=== PATIENT | female | born 1985 | race American Indian/Alaskan Native ===

== ENCOUNTER 2021-12-12 11:28 | Inpatient (IN) | payer MEDICAID ==
[2021-12-12] MEDS ORDERED: LACTATED RINGERS 1,000 ML ONE (12:10)
[2021-12-12] MEDS ORDERED: CARBOPROST TROMETHAMINE 250 MCG/1 ML INJ IM PRN (12:40)
[2021-12-12] MEDS ORDERED: OXYTOCIN 10 UNIT/1 ML INJ IM PRN (12:40)
[2021-12-12] MEDS ORDERED: ACETAMINOPHEN 325 MG TAB PO PRN ×2 (12:40→17:00)
[2021-12-12] MEDS ORDERED: PENICILLIN G POTASSIUM 5 MIL.UNITS in SODIUM CHLORIDE 0.9% 50 ML IV ONE (12:40)
[2021-12-12] MEDS ORDERED: miSOPROStol 200 MCG TAB PR PRN (12:40)
[2021-12-12] MEDS ORDERED: ONDANSETRON 4 MG/2 ML INJ IV PRN ×2 (12:40→17:30)
[2021-12-12] MEDS ORDERED: fentaNYL 100 MCG/2 ML INJ IV PRN (12:40)
[2021-12-12] MEDS ORDERED: ePHEDrine SULFATE 50 MG/1 ML INJ IV PRN (12:40)
[2021-12-12] MEDS ORDERED: NalbUPHINE 10 MG/1 ML INJ IV PRN (12:40)
[2021-12-12] MEDS ORDERED: PROMETHAZINE 25 MG TAB PO PRN ×2 (12:40→17:30)
[2021-12-12] MEDS ORDERED: MINERAL OIL 30 ML ORAL LIQD PO PRN (12:40)
[2021-12-12] MEDS ORDERED: TERBUTALINE 1 MG/1 ML INJ SUB-Q PRN (12:40)
[2021-12-12] MEDS ORDERED: METHYLERGONOVINE MALEATE 0.2 MG/ML VIAL IM PRN (12:40)
[2021-12-12] MEDS ORDERED: LOPERAMIDE 2 MG CAP PO PRN (12:40)
[2021-12-12] MEDS ORDERED: LIDOCAINE (2%) 20 MG/1 ML VIAL 20 ML MDV INFILTRATI ONE (12:40)
[2021-12-12] MEDS ORDERED: LACTATED RINGERS 1,000 ML IV SCH (12:45)
--- NOTE | 2021-12-12 12:47 | History and Physical Report ---
History of Present Illness Date of examination: 12/12/21 Chief complaint: ctx and LOF History of present illness: at 37.1wks by LMP c/w U/S at [facility]. Pt left this practice and transferred to Dr. Kirkpatrick. Prenatals from [facility] obtained up to 24wks when pt was told that she had amniotic band and pt left to another practice. Pt admits to movement, feeling painful ctx, LOF at [facility] clinic today approx 10am, denies headache, fever or chills, denies vag bleed. Records from [facility] show Blood type ) positive, neg screen, rubella immune, VDRL neg, urine culture negative, HepBsAg neg and HIV negative. U/S at 16wks with amniotic band vs synechiaea and c-spine abnormality. No 1hrgtt done and repeat u/s at 20wks remain with amniotic bands. Pt states she went to [facility] but no records available. 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) - Obstetrical History Expected Date of Delivery: 01/01/22 Actual Gestation: 37 Week(s) 1 Day(s) : 4 Hx # Term Pregnancies: 2 Spontaneous Abortions: 1 Number of Living Children: 2 Medications and Allergies Allergies Allergy/AdvReac Type Severity Reaction Status Date / Time metronidazole [From Flagyl] Allergy Swelling Verified 02/25/13 09:02 Metronidazole HCl Allergy Swelling Verified 02/25/13 09:02 [From Flagyl] Home Medications Medication Instructions Recorded Confirmed Last Taken Type Albuterol Mdi (or & Nicu Only) 2 puff IH QID PRN 02/25/13 02/25/13 Unknown History [Proair] Active Meds: Active Medications Acetaminophen (Acetaminophen 325 Mg Tab) 650 mg PO Q4H PRN PRN Reason: Pain, Mild (1-3) Carboprost Tromethamine (Carboprost Tromethamine 250 Mcg/1 Ml Inj) 250 mcg IM ONCE PRN PRN Reason: Uterine Bleeding Ephedrine Sulfate (Ephedrine Sulfate 50 Mg/1 Ml Inj) 10 mg IV Q2M PRN PRN Reason: Hypotension Fentanyl (Fentanyl 100 Mcg/2 Ml Inj) 100 mcg IV Q2H PRN PRN Reason: Pain,Severe (7-10) LABOR PAIN Oxytocin/Sodium Chloride (Pitocin/Ns 30 Unit/500ml) 30 units in 500 mls @ 2 mls/hr IV TITR JI; Protocol Lactated Ringer's (Lactated Ringers) 1,000 mls @ 125 mls/hr IV DIRECT JI Oxytocin/Sodium Chloride (Pitocin/Ns 30 Unit/500ml) 30 units in 500 mls @ 40 mls/hr IV TITR JI; Protocol Penicillin G Potassium 5 mil. (units/ Sodium Chloride) 50 mls @ 100 mls/hr IV ONCE ONE; Protocol Stop: 12/12/21 13:09 Lidocaine (Lidocaine (2%) 20 Mg/1 Ml Vial 20 Ml Mdv) 20 ml INFILTRATI ONCE ONE Stop: 12/12/21 12:41 Loperamide HCl (Loperamide 2 Mg Cap) 2 mg PO ONCE PRN PRN Reason: give with Hemabate Methylergonovine Maleate (Methylergonovine Maleate 0.2 Mg/Ml Vial) 0.2 mg IM ONCE PRN PRN Reason: Uterine Bleeding Mineral Oil (Mineral Oil 30 Ml Oral Liqd) 30 ml PO QHS PRN PRN Reason: Constipation Misoprostol (Misoprostol 200 Mcg Tab) 800 mcg ID ONCE PRN PRN Reason: Uterine Bleeding Nalbuphine HCl (Nalbuphine 10 Mg/1 Ml Inj) 10 mg IV Q2H PRN PRN Reason: Pain, Moderate (4-6) Ondansetron HCl (Ondansetron 4 Mg/2 Ml Inj) 4 mg IV Q8H PRN PRN Reason: Nausea And Vomiting Oxytocin (Oxytocin 10 Unit/1 Ml Inj) 10 unit IM ONCE PRN PRN Reason: Uterine Bleeding Promethazine HCl (Promethazine 25 Mg Tab) 25 mg PO Q6H PRN PRN Reason: Nausea And Vomiting Terbutaline Sulfate (Terbutaline 1 Mg/1 Ml Inj) 0.25 mg SUB-Q ONCE PRN PRN Reason: Hyperstimulation/Hypertonicity Review of Systems All systems: negative (pt screaming to get the baby out of her and pushing from 5cm dilation) - Vital Signs Vital signs: Vital Signs Pulse Pulse Ox 72 100 12/12/21 11:44 12/12/21 11:44 Temp Pulse Resp BP Pulse Ox 78 100 12/12/21 12:42 12/12/21 12:42 - Physical Exam Breasts: Positive: deferred Cardiovascular: Regular rate Lungs: Positive: Normal air movement Abdomen: Positive: soft Genitourinary (Female): Positive: normal external genitalia Vulva: both: normal (no lesions seen) Vagina: Positive: normal moisture Uterus: Positive: enlarged (non-tender gravid) - Obstetrical FHR: category 1 Uterine Contraction Monitor Mode: External Cervical Dilatation: 10 (5cm in triage 1hr prior) Cervical Effacement Percentage: 100 station: +3 Uterine Contraction Pattern: Regular Uterine Contraction Intensity: Moderate Results Result Diagrams: 12/12/21 12:30 All other labs normal. Assessment and Plan Term laboring patient in active labor, SROM and ready to push baby 1. Admit to labor and delivery. See delivery note 2. records obtained after the delivery was done 3. All questions encouraged and answered
[2021-12-12] MEDS ORDERED: OXYTOCIN DRIP 30 UNITS/500 ML BAG IV SCH ×3 (13:00→17:00)
[2021-12-12 13:49] LABS: Hematocrit 27.5 % (30.3-42.9); Hemoglobin 8.6 gm/dl (10.1-14.3)
--- NOTE | 2021-12-12 14:15 | Procedure Note ---
OB Delivery Note - Delivery Date of Delivery: 12/12/21 Surgeon: EL SUAZO Estimated blood loss: 200cc - Vaginal Delivery presentation: vertex Delivery position: OA (with flexed right arm and fingers immediately below chin) Intrapartum events: precipitous labor- <3hr Delivery induction: none Delivery monitor: external FHT, external uterine Route of delivery: Delivery placenta: spontaneous Delivery cord: 3 umbilical vessels Episiotomy: none Delivery laceration: none Anesthesia: none Delivery comments: Precipitous vag delivery of viable female and pt screaming and running up the bed. Placenta delivered eventually and has accessory lobe, and same sent to pathology. Cervix visualized anteriorly without lacerations, pt could not to lerate exam therefore manual exam done and same appears complete. Bimanual exam done and clots removed from lower uterine segment. Pt given IV pain med just prior to delivery. Baby and patient doing well. PAUL nurse present for delivery. - A at 1 minute: 8 at 5 minutes: 9 (wt 2820g) Infant Gender: Female
[2021-12-12] MEDS ORDERED: IBUPROFEN 800 MG TAB PO PRN (16:00)
[2021-12-12 16:40] LABS: Hemoglobin 8.5 gm/dl (10.1-14.3); Mean Corpuscular HGB Conc 31 % (30-34); Mean Corpuscular Volume 85 fl (79-97); Platelet Count 212 K/mm3 (140-440); Red Blood Count 3.28 M/mm3 (3.65-5.03); Red Cell Distribution Width 16.2 % (13.2-15.2)
[2021-12-12] MEDS ORDERED: PENICILLIN G POTASSIUM 3 MIL.UNITS in SODIUM CHLORIDE 0.9% 50 ML IV SCH (17:00)
[2021-12-12] MEDS ORDERED: BENZOCAINE/MENTHOL 20/0.5% TOP SPRAY 56 GM TP PRN (17:00)
[2021-12-12] MEDS ORDERED: HYDROCORTISONE 25 MG RECTAL SUPP PR PRN (17:00)
[2021-12-12] MEDS ORDERED: LANOLIN/ZINC/DIMETHICONE (LANSINOH) 7 GM TP PRN (17:00)
[2021-12-12] MEDS ORDERED: WITCH HAZEL/ GLYCERIN PAD TP PRN (17:00)
[2021-12-12] MEDS ORDERED: diphenhydrAMINE 25 MG CAP PO PRN (17:00)
[2021-12-12] MEDS: IBUPROFEN 800 MG TAB PO SCH ×2 (17:17→23:36)
[2021-12-12] MEDS ORDERED: PROMETHAZINE 25 MG RECT SUPP PR PRN (17:30)
[2021-12-12 18:09] LABS: Band Neutrophils # (Manual) 0.4 K/mm3; Basophils % (Manual) 0 % (0.0-1.8); Eosinophils % (Manual) 0 % (0.0-4.3); Platelet Estimate Consistent w Auto; RBC Morphology Normal; Total Cells Counted 100
[2021-12-12] MEDS: oxyCODONE /ACETAMINOPHEN 5-325MG TAB PO PRN (18:11)
[2021-12-12 18:13] LABS: Amphetamine Screen,Urine Negative; Benzodiazepines Screen,Urine Negative; Cocaine Screen,Urine Negative; Methadone Screen,Urine Negative; Opiate Screen,Urine Negative
[2021-12-12 18:25] LABS: Cannabinoid Screen,Urine Positive
[2021-12-12] MEDS ORDERED: MAGNESIUM HYDROXIDE (MOM) ORAL LIQD UDC PO PRN (22:00)
[2021-12-13] MEDS: IBUPROFEN 800 MG TAB PO SCH ×2 (06:34)
[2021-12-13 08:21] LABS: Hematocrit 32.2 % (30.3-42.9); Mean Corpuscular HGB Conc 36 % (30-34); Mean Corpuscular Volume 97 fl (79-97); Platelet Count 115 K/mm3 (140-440); Red Blood Count 3.33 M/mm3 (3.65-5.03); Red Cell Distribution Width 13.5 % (13.2-15.2)
[2021-12-13 09:32] LABS: Hemoglobin 11.5 gm/dl (10.1-14.3)
[2021-12-13] MEDS: PRENATAL VIT27-FE FUMARATE-FOLIC ACID VIT TAB PO SCH (10:32)
[2021-12-13] MEDS: oxyCODONE /ACETAMINOPHEN 5-325MG TAB PO PRN ×2 (10:32→18:30)
--- NOTE | 2021-12-13 14:43 | Progress Note ---
Assessment and Plan A: PP Day #1 Asymptomatic Anemia (Hgb increased from 8.6 to 11.5 after delivery) P: Follow Routine Orders Repeat CBC Subjective - Subjective Date of service: 12/13/21 Patient reports: appetite normal, voiding normally, pain well controlled, flatus, bowel movement, ambulating normally : doing well, bottle feeding Objective - Vital Signs Latest vital signs: Vital Signs Temp Pulse Resp BP BP Pulse Ox Pulse Ox 12/13/21 12:51 97.6 F 69 20 117/77 97 12/13/21 08:00 98 12/13/21 07:58 98.0 F 70 20 109/54 97 12/12/21 23:12 98.2 F 73 20 103/71 99 12/12/21 19:45 99 12/12/21 16:15 98.0 F 65 18 106/73 100 100 12/12/21 15:32 67 100 12/12/21 15:30 84 93 12/12/21 15:27 82 97 12/12/21 15:24 72 91 12/12/21 15:22 85 100 12/12/21 14:52 83 97 12/12/21 14:47 81 100 12/12/21 14:42 77 97 Intake and Output 12/12/21 12/13/21 12/13/21 22:59 06:59 14:59 Intake Total 120 200 Output Total 100 Balance 20 200 Intake: Oral 120 200 Output: Urine 100 Void 100 Other: Total, Intake Amount 120 200 Total, Output Amount 100 # Voids Void 1 1 # Bowel Movements 1 - Exam Breasts: Present: normal Cardiovascular: Present: Regular rate Lungs: Present: Clear to auscultation, Normal air movement Abdomen: Present: normal appearance, soft, normal bowel sounds Uterus: Present: normal, firm, fundal height below umbilicus Extremities: Present: normal - Labs Labs: Abnormal lab results 12/12/21 12/13/21 Range/Units 16:00 07:57 WBC 20.7 H (4.5-11.0) K/mm3 RBC 3.28 L 3.33 L (3.65-5.03) M/mm3 Hgb 8.5 L (10.1-14.3) gm/dl Hct 28.0 L (30.3-42.9) % MCH 26 L 34 H (28-32) pg MCHC 36 H (30-34) % RDW 16.2 H (13.2-15.2) % Plt Count 115 L (140-440) K/mm3 Seg Neuts % (Manual) 78.0 H (40.0-70.0) % Seg Neutrophils # Man 16.1 H (1.8-7.7) K/mm3
[2021-12-13 17:03] LABS: Basophils % (Auto) 0.3 % (0.0-1.8); Eosinophils % (Auto) 0.4 % (0.0-4.3); Hematocrit 33.6 % (30.3-42.9); Hemoglobin 11.7 gm/dl (10.1-14.3); Lymphocytes # (Auto) 1.9 K/mm3 (1.2-5.4); Lymphocytes % (Auto) 23.5 % (13.4-35.0); Mean Corpuscular HGB Conc 35 % (30-34); Mean Corpuscular Volume 99 fl (79-97); Monocytes # (Auto) 0.6 K/mm3 (0.0-0.8); Platelet Count 113 K/mm3 (140-440); Red Blood Count 3.41 M/mm3 (3.65-5.03); Red Cell Distribution Width 13.5 % (13.2-15.2)
[2021-12-14] MEDS: oxyCODONE /ACETAMINOPHEN 5-325MG TAB PO PRN ×2 (02:14→09:12)
[2021-12-14] MEDS: IBUPROFEN 800 MG TAB PO SCH ×3 (06:32→13:13)
[2021-12-14] MEDS: PRENATAL VIT27-FE FUMARATE-FOLIC ACID VIT TAB PO SCH (09:12)
[2021-12-14 10:10] LABS: Basophils % (Auto) 0.7 % (0.0-1.8); Eosinophils # (Auto) 0.1 K/mm3 (0.0-0.4); Eosinophils % (Auto) 1.1 % (0.0-4.3); Hematocrit 37.3 % (30.3-42.9); Hemoglobin 12.9 gm/dl (10.1-14.3); Lymphocytes % (Auto) 28.4 % (13.4-35.0); Mean Corpuscular HGB Conc 35 % (30-34); Mean Corpuscular Volume 98 fl (79-97); Monocytes # (Auto) 0.5 K/mm3 (0.0-0.8); Monocytes % (Auto) 7.1 % (0.0-7.3); Platelet Count 128 K/mm3 (140-440); Red Blood Count 3.81 M/mm3 (3.65-5.03); Red Cell Distribution Width 13.4 % (13.2-15.2)
--- NOTE | 2021-12-14 13:11 | Progress Note ---
Assessment and Plan PPD#2 doing well 1. pt counseled that motrin script will be given for pain relief and she may add tylenol as well. However no narcotics will be given and abnormal pap is not a requirement 2. Pt to follow up in office for contraception at 6wks. All questions encouraged and answered Subjective Date of service: 12/14/21 Principal diagnosis: PPD#2 Interval history: pt desires percocet and motrin on discharge. pt is breast feeding. pt states that she has abnormal papsmear prior to delivery and will need narcotics for pain relief. pt is bottle feeding. pt voids without difficulty. Vag bleed less than a period Objective - Constitutional Vitals: Vital Signs - 12hr 12/14/21 12/14/21 12/14/21 01:24 08:13 08:38 Temperature 97.7 F 98.0 F Pulse Rate 69 73 Respiratory 18 18 Rate Blood Pressure 115/68 118/85 O2 Sat by Pulse 100 100 Oximetry O2 Sat by Pulse 98 Oximetry [ Bilateral Throughout] General appearance: Present: no acute distress - Neck Neck: normal ROM - Respiratory Respiratory effort: normal - Breasts Breasts: deferred - Cardiovascular Rhythm: regular Extremities: No edema - Gastrointestinal General gastrointestinal: Present: soft, non-tender - Genitourinary Female genitourinary: other (fundus firm and non-tender, 2cm below the umbilicus; lochia small) - Neurologic Neurologic: moves all extremities - Psychiatric Psychiatric: cooperative - Labs CBC & Chem 7: 12/14/21 09:45 Labs: Abnormal lab results 12/13/21 12/14/21 Range/Units 16:02 09:45 RBC 3.41 L (3.65-5.03) M/mm3 MCV 99 H 98 H (79-97) fl MCH 34 H 34 H (28-32) pg MCHC 35 H 35 H (30-34) % Plt Count 113 L 128 L (140-440) K/mm3 Medications & Allergies - Medications Allergies/Adverse Reactions: Allergies metronidazole [From Flagyl] Allergy (Verified 02/25/13 09:02) Swelling Metronidazole HCl [From Flagyl] Allergy (Verified 02/25/13 09:02) Swelling Home Medications: Home Medications Medication Instructions Recorded Confirmed Last Taken Type Albuterol Mdi (or & Nicu Only) 2 puff IH QID PRN 02/25/13 02/25/13 Unknown History [Proair] Active Medications: Generic Name Dose Route Start Last Admin Trade Name Freq PRN Reason Stop Dose Admin Acetaminophen 650 mg 12/12/21 17:00 Acetaminophen 325 Mg Tab PO Q4H PRN Pain MILD(1-3)/Fever >100.5/WHITNEY Benzocaine/Menthol 1 spray 12/12/21 17:00 12/13/21 10:32 Benzocaine/Menthol 20/0.5% Top [place] 56 Gm TP 1 spray PRN PRN Administration Episiotomy Pain Bisacodyl 10 mg 12/12/21 17:00 Bisacodyl 10 Mg Rect Supp ID BID PRN Constipation Carboprost Tromethamine 250 mcg 12/12/21 12:40 Carboprost Tromethamine 250 Mcg/1 Ml Inj IM ONCE PRN Uterine Bleeding Diphenhydramine HCl 25 mg 12/12/21 17:00 Diphenhydramine 25 Mg Cap PO Q6H PRN Itching Hydrocortisone Acetate 25 mg 12/12/21 17:00 Hydrocortisone 25 Mg Rectal Supp ID BID PRN Hemorrhoids Lactated Ringer's 1,000 mls @ 125 mls/hr 12/12/21 12:45 Lactated Ringers IV DIRECT JI Oxytocin/Sodium Chloride 30 units in 500 mls @ 40 mls/hr 12/12/21 17:00 Pitocin/Ns 30 Unit/500ml IV TITR JI Protocol Ibuprofen 800 mg 12/12/21 18:00 12/14/21 06:32 Ibuprofen 800 Mg Tab PO 800 mg Q6H JI Administration Loperamide HCl 2 mg 12/12/21 12:40 Loperamide 2 Mg Cap PO ONCE PRN give with Hemabate Magnesium Hydroxide 30 ml 12/12/21 22:00 Magnesium Hydroxide (Mom) Oral Liqd Udc PO HS PRN Constipation Methylergonovine Maleate 0.2 mg 12/12/21 12:40 Methylergonovine Maleate 0.2 Mg/Ml Vial IM ONCE PRN Uterine Bleeding Misoprostol 800 mcg 12/12/21 12:40 Misoprostol 200 Mcg Tab ID ONCE PRN Uterine Bleeding Multi-Ingredient Ointment 1 applic 12/12/21 17:00 Lanolin/Zinc/Dimethicone (Lansinoh) 7 Gm TP PRN PRN Sore Nipples Multivitamins/Iron/Calcium 1 each 12/13/21 10:00 12/14/21 09:12 [id number] Fumarate-Folic Acid Vit Tab PO 1 each QDAY JI Administration Ondansetron HCl 4 mg 12/12/21 17:30 Ondansetron 4 Mg/2 Ml Inj IV Q8H PRN Nausea And Vomiting Oxycodone/Acetaminophen 2 tab 12/12/21 17:00 12/14/21 09:12 Oxycodone /Acetaminophen 5-325mg Tab PO 2 tab Q4H PRN Administration Pain, Moderate (4-6) Oxytocin 10 unit 12/12/21 12:40 Oxytocin 10 Unit/1 Ml Inj IM ONCE PRN Uterine Bleeding Promethazine HCl 25 mg 12/12/21 17:30 Promethazine 25 Mg Rect Supp ID Q6H PRN Nausea And Vomiting Promethazine HCl 25 mg 12/12/21 17:30 Promethazine 25 Mg Tab PO Q6H PRN Nausea And Vomiting Sodium Chloride 10 ml 12/12/21 18:00 Sodium Chloride 0.9% 10 Ml Flush Syringe IV PRN PRN flush [place]/Glycerin 1 each 12/12/21 17:00 [place]/ Glycerin Pad TP PRN PRN Hemorrhoid/cleansing/soothing
--- NOTE | 2021-12-14 13:11 | Discharge Summary ---
Providers - Providers Date of Admission: 12/12/21 12:40 Date of discharge: 12/14/21 Attending physician: EL SUAZO Primary care physician: EL SUAZO Hospitalization Reason for admission: IUP at term Delivery: Episiotomy: none Laceration: none complications: none Discharge diagnosis: IUP at term delivered baby: female Hospital course: Term preg in labor, had uncomplicated and uneventful. Pt was not given narcotics as she desired with no lacerations or complications that merited such. She was given motrin script. Condition at discharge: Good Disposition: 01 HOME / SELF CARE / HOMELESS Plan - Provider Discharge Summary Activity: no sex for 6 weeks Diet: routine Instructions: other (NO sex. please make 6wk appt with your provider. call if temp>100.3, severe pelvic pain or heavy vag bleed with large clots) Additional instructions: [] Smoking cessation referral if applicable(refer to patient education folder for contact #) [] Refer to [facility] Booklet Call your doctor immediately for: * Fever > 100.5 * Heavy vaginal bleeding ( >1 pad per hour) * Severe persistent headache * Shortness of breath * Reddened, hot, painful area to leg or breast * Drainage or odor from incision. * Keep incision clean and dry at all times and follow doctor's instructions regarding bathing/showering - Follow up plan Follow up: EL SUAZO MD [Primary Care Provider] - 6 Weeks
[2021-12-14 14:22] VITALS: BP 119/81
== END 2021-12-14 14:10 | disposition home or self-care (01) | DRG 775 ==
LOC: TRG 11:28 → APU 11:29 → LD 12:18 → TRG 13:01 → OB 16:10
PROVIDERS: ADMIT Obstetrics & Gynecology; ATTEND Obstetrics & Gynecology
PROC: 10E0XZZ Delivery of Products of Conception, External Approach (ICD-10-PCS; principal; 2021-12-12)
DX: O62.3 Precipitate labor (principal); Z3A.37 37 weeks gestation of pregnancy; Z37.0 Single live birth; O99.52 Diseases of the respiratory system complicating childbirth; J45.909 Unspecified asthma, uncomplicated; Z88.8 Allergy status to other drugs, medicaments and biological substances
CPT/HCPCS: 36415; 80307; 85007; 85014; 85018; 85025; 85027; 86592; 86706; 86762; 86850; 86900; 86901; 87806; 88307; G0378